=== PATIENT | female | born 1940 | race Hispanic/Latino ===

== ENCOUNTER 2017-09-12 10:32 | Outpatient (CLI) | payer MEDICARE ==
--- NOTE | 2017-09-12 11:35 | RAD ---
RIGHT HAND THREE VIEWS: HISTORY: Pain. COMPARISON: None. 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 There are degenerativ e changes with loss of joint space height, sclerosis, and cyst formation in the first carpometacarpal joint space and second carpometacarpal joint space. There is collapse of the trapezium bone. IMPRESSION: Extensive osteoarthritic changes. POS: [facility]
--- NOTE | 2017-09-12 11:36 | RAD ---
RIGHT WRIST THREE VIEWS: HISTORY: Pain. COMPARISON: None. FINDINGS: There is significant degenerative change with loss of joint space height, sclerotic changes, and drew apse involving the first carpometacarpal joint space. There is irregularity involving the trapezium bone. There is preservation of the radial and ulnar styloid. IMPRESSION: Degenerative change involving the first carpometacarpal joint space. POS: [facility]
--- NOTE | 2017-09-12 11:44 | RAD ---
LEFT WRIST THREE VIEWS: INDICATIONS: Left wrist pain. FINDINGS: There is advanced STT and first CMC osteoarthrosis. There is diffuse osteopenia. Chondrocalcinosis is present within the TFC. No acute fracture or subluxation is noted. The soft tissues are within n ormal limits. There is a healed deformity involving the mid shaft of the left small finger metacarpa l. IMPRESSION: 1. 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 2. 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 POS: [facility]
--- NOTE | 2017-09-12 11:51 | RAD ---
THREE VIEWS OF THE RIGHT ANKLE: COMPARISON: None. HISTORY: Right ankle pain. FINDINGS: Three views right ankle show no evidence of acute fracture or dislocation. No degenerative changes a re seen. No soft tissue swelling is present. IMPRESSION: No evidence of acute osseous abnormality. POS: [facility]
--- NOTE | 2017-09-12 11:53 | RAD ---
THREE VIEWS OF THE RIGHT FOOT: COMPARISON: None. HISTORY: Right foot pain. FINDINGS: Three views right foot show no evidence of acute fracture or dislocation. Mild degenerative changes are seen in the great toe metatarsophalangeal joint. There may be small ossifications along the medi al aspect of the 1st metatarsal head. IMPRESSION: Degenerative changes in the great toe as above. POS: [facility]
--- NOTE | 2017-09-12 11:57 | RAD ---
THREE VIEWS LEFT ANKLE: History: Pain. Comparison: None. FINDINGS: Mild spurring of the calcaneus at the plantar aponeurosis insertion plate. There is lateral soft tissue swelling. Joint space is preserved. NO fracture. Diffuse bone deminerali zation. IMPRESSION: Soft tissue swelling, without evidence of fracture. POS: [facility]
--- NOTE | 2017-09-12 11:58 | RAD ---
THREE VIEWS LEFT FOOT: History: Pain. Comparison: None. FINDINGS: Lisfranc alignment is maintained. Joint space is preserved. No fracture. IMPRESSION: Unremarkable three views left foot. POS: [facility]
--- NOTE | 2017-09-12 12:13 | RAD ---
LEFT HAND THREE VIEWS: INDICATIONS: Left hand pain. FINDINGS: There is advanced first CMC and STT osteoarthrosis. There is chondrocalcinosis of the TFC. There is a healed fracture deformity involving the mid shaft of small finger metacarpal. There is scattered IP osteoarthrosis of the left hand. There is some central erosive change involving the DIP joints of the left index through small fingers, which may reflect an erosive component. The soft tissues are normal appearing. There is diffuse osteopenia. IMPRESSION: 1. Scattered osteoarthrosis with more central erosive change involving the distal interphalangeal niko ints of the left second through fifth digits. This could reflect an erosive osteoarthropathy compone nt. 2. Chondrocalcinosis of the triangular fibrocartilage complex. 3. 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 POS: [facility]
== END 2017-09-12 10:33 | disposition home or self-care (01) ==
LOC: RAD-FRANK 10:32
PROVIDERS: ATTEND Internal Medicine Rheumatology
DX: M25.50 Pain in unspecified joint (principal); M18.0 Bilateral primary osteoarthritis of first carpometacarpal joints; M19.042 Primary osteoarthritis, left hand; M19.041 Primary osteoarthritis, right hand; M79.89 Other specified soft tissue disorders; M19.071 Primary osteoarthritis, right ankle and foot; M19.032 Primary osteoarthritis, left wrist; M11.232 Other chondrocalcinosis, left wrist

== ENCOUNTER 2018-02-03 09:42 | Outpatient (CLI) | payer MEDICARE ==
[2018-02-03] MEDS ORDERED: Gadobenate Dimeglumine 529 MG/1 ML (20ML VIAL) ONE (09:44)
--- NOTE | 2018-02-03 13:59 | MRI ---
MRI BRAIN WITH AND WITHOUT CONTRAST: Date: 02/03/18 HISTORY: Senile degeneration. COMPARISON: None. FINDINGS: No parenchymal hemorrhage. No extra-axial hematoma. No parenchymal mass, mass effect, or midline shif t. Brain volume, age-appropriate. Cortical ramirez-white matter differentiation preserved. No evidence o f hydrocephalus. T2 and FLAIR white matter hyperintensities due to chronic small vessel ischemic change. Central arter ial flow-voids are maintained. Absent restricted diffusion. Calvarium has a normal T1 marrow signal i ntensity. Midline brain parenchymal structures are unremarkable. Bilateral ocular lens implants are n oted. Mild mucosal disease involving bilateral ethmoid air cells. There is significant mucosal diseas e involving the left sphenoid sinus. Small mucus retention cyst in the left maxillary sinus. There is no pathologic enhancement of the brain parenchyma. IMPRESSION: 1. Absent restricted diffusion. No acute infarct. 2. Chronic small vessel ischemic changes of white matter identified. 3. Paranasal sinus disease as above. POS: [facility]
== END 2018-02-03 09:43 | disposition home or self-care (01) ==
LOC: BICMRI 09:42
PROVIDERS: ATTEND Psychiatry & Neurology Neurology
DX: G31.1 Senile degeneration of brain, not elsewhere classified (principal); J32.3 Chronic sphenoidal sinusitis; J34.1 Cyst and mucocele of nose and nasal sinus; J32.2 Chronic ethmoidal sinusitis
CPT/HCPCS: 70553; 82565; A9579

== ENCOUNTER 2019-04-23 12:29 | Emergency (ER) | payer MEDICARE ==
--- NOTE | 2019-04-23 13:32 | RAD ---
XR Chest Pa Lat STANDARD HISTORY: Cough COMPARISON: 07/12/2016 FINDINGS: The heart size is normal. The aorta is tortuous. The lungs are well expanded without focal areas of consolidation, pneumothorax or pleural effusions. IMPRESSION: No radiographic evidence of acute cardiopulmonary process.
== END 2019-04-23 13:58 | disposition home or self-care (01) ==
LOC: ERS 12:29
DX: R05 Cough (principal); R51 Headache; I10 Essential (primary) hypertension
CPT/HCPCS: 71046; 93005

== ENCOUNTER 2022-12-27 15:02 | Inpatient (IN) | payer MEDICARE ==
[~2022-12-27 15:02] MED LIST: Iopamidol-370 76% 500 ML MDV (1 ML CHARGE) ONE
[2022-12-27 16:14] LABS: Hematocrit 38.5 % (36.0-47.0); Hemoglobin 12.7 g/dL (12.0-16.0); Mean Corpuscular Hemoglobin 28.5 pg (27.0-31.0); Mean Corpuscular Volume 86.3 fl (78.0-98.0); Mean Platelet Volume 10.4 fL (7.4-10.4); Platelet Count 158 10x3/uL (130-400); RBC Distribution Width 22.8 % (11.5-14.5); Red Blood Cell (RBC) Count 4.46 mill/uL (4.20-5.40); White Blood Cell (WBC) Count 8.2 10x3/uL (4.8-10.8)
[2022-12-27 16:31] LABS: Delete Auto Diff?? YES; Manual Diff?? YES
[2022-12-27 16:42] LABS: ALT (SGPT) 302 U/L (8-55); AST (SGOT) 405 U/L (5-34); Albumin 2.5 g/dL (3.4-4.8); Alkaline Phosphatase 135 U/L (40-110); Anion Gap 13 mmol/L (10-20); BUN (Urea Nitrogen) 37 mg/dL (9.8-20.1); Bilirubin, Total 0.9 mg/dL (0.2-1.2); CK (CPK) 38 U/L (29-168); Calc. Creatinine Clearance 0 mL/min (70-130); Calcium 7.9 mg/dL (7.8-10.44); Carbon Dioxide 11 mmol/L (23-31); Chloride 112 mmol/L (98-107); Estimated GFR 46; Globulin 2.9 g/dL (2.4-3.5); Glucose 122 mg/dL (83-110); Lipase 35 U/L (8-78); Magnesium 2.1 mg/dL (1.6-2.6); Potassium 3.5 mmol/L (3.5-5.1); Protein, Total 5.4 g/dL (5.8-8.1); Sodium 132 mmol/L (136-145)
[2022-12-27 16:43] LABS: INR-International Normal Ratio 2.1; PTT 36.9 sec (22.9-36.1); Prothrombin Time 24.8 sec (12.0-14.7)
[2022-12-27 16:55] LABS: Anisocytosis MODERATE=16-30 cells HPF (0-5); Band 14 % (5-11); CellaVision Operator ID LAB.KB; Eosinophils 1 % (0-10); Large Platelets 4.2 % (0-5); Lymphocytes 4 % (21-51); Monocytes 3 % (0-10); Neutrophil 76 % (42-75); Platelet Adequacy Comment Platelets Normal; Polychromasia SLIGHT = 2-3 cells HPF (0-2); Reactive Lymphocytes 1 % (0-10); Smudge Cells 39.6 %; Total Cell Count 96
[2022-12-27 17:35] LABS: Bilirubin Negative (Negative); Blood, Urine Negative (Negative); CAUTI Indications for Culture Alt mental st,lethar; Clarity Clear (Clear); Glucose, Urine (Dipstick) Normal (Negative); Ketone, Urine Negative (Negative); Leukocyte Negative Leu/uL (Negative); Nitrite Negative (Negative); Protein, Urine (Dipstick) 30 mg/dL (Neg-Trace); RBC/HPF 0-3 HPF (0-3); Specific Gravity, Urine 1.015 (1.002-1.036); Squamous Epithelial 0-3 HPF (0-3); Urobilinogen Normal mg/dL (Less than 2); pH, Urine 5.5 (5.0-9.0)
[2022-12-27 17:39] LABS: Bacteria/HPF 1+ HPF (None Seen)
[2022-12-27 17:40] LABS: Urine Culture Reflex No No
[2022-12-27 20:44] LABS: Lactic Acid 3.4 mmol/L (0.5-2.2)
[2022-12-27] MEDS ORDERED: Sodium Chloride 0.9% 1,000 ML IV SCH (22:00)
[2022-12-27] MEDS ORDERED: Calcium Carbonate 500 MG ChewTAB PO PRN (22:00)
[2022-12-27] MEDS ORDERED: Acetaminophen 325 MG TAB PO PRN (22:00)
[2022-12-27] MEDS ORDERED: Ondansetron PF 4 MG/2 ML Vial IVP PRN (22:00)
[2022-12-27] MEDS ORDERED: Ondansetron ODT 4 MG TAB PO PRN (22:00)
[2022-12-27] MEDS ORDERED: Loperamide HCl 2 MG CAP PO PRN (22:01)
[2022-12-27 22:02] LABS: Campy jejuni + coli by PCR Negative (Negative); STEC Shiga Toxin 1+2 Negative (Negative); Salmonella spp. by PCR Negative (Negative); Shigella spp + EIEC by PCR Negative (Negative)
[2022-12-27 22:22] VITALS: BMI 18.1
[2022-12-27] MEDS ORDERED: D5 1/2 NS w/20 mEq KCL 1,000 ML IV SCH (22:30)
[2022-12-27] MEDS ORDERED: Piperacillin/Tazobactam 3.375 GM in Sodium Chloride 0.9% 100 ML IVPB SCH ×2 (23:00→23:59)
[2022-12-28] MEDS: Piperacillin/Tazobactam 3.375 GM in Sodium Chloride 0.9% 100 ML IVPB SCH ×3 (04:54→19:56)
[2022-12-28] MEDS ORDERED: Saccharomyces boulardii 250 MG CAP PO SCH (09:00)
[2022-12-28] MEDS: Furosemide 20 MG TAB PO SCH (09:28)
[2022-12-28] MEDS: Apixaban 2.5 MG TAB PO SCH (09:28)
[2022-12-28] MEDS: Famotidine 20 MG TAB PO SCH (09:28)
[2022-12-28] MEDS: Famotidine/PF 20 mg/2ml Vial SLOW IVP SCH (09:30)
[2022-12-28 10:11] LABS: Lactic Acid 1.5 mmol/L (0.5-2.2)
[2022-12-28 10:20] LABS: ALT (SGPT) 307 U/L (8-55); AST (SGOT) 374 U/L (5-34); Albumin 2.2 g/dL (3.4-4.8); Alkaline Phosphatase 115 U/L (40-110); Anion Gap 10 mmol/L (10-20); BUN (Urea Nitrogen) 33 mg/dL (9.8-20.1); Bilirubin, Total 0.8 mg/dL (0.2-1.2); Calc. Creatinine Clearance 32 mL/min (70-130); Calcium 7.6 mg/dL (7.8-10.44); Carbon Dioxide 13 mmol/L (23-31); Chloride 115 mmol/L (98-107); Estimated GFR 60; Globulin 2.9 g/dL (2.4-3.5); Glucose 104 mg/dL (83-110); Potassium 3.1 mmol/L (3.5-5.1); Protein, Total 5.1 g/dL (5.8-8.1); Sodium 135 mmol/L (136-145)
[2022-12-28] MEDS: Atorvastatin Calcium 20 MG TAB PO SCH ×2 (21:21→21:22)
[2022-12-28] MEDS: Saccharomyces boulardii 250 MG CAP PO SCH (21:21)
[2022-12-29] MEDS: Apixaban 2.5 MG TAB PO SCH ×3 (01:19→20:12)
[2022-12-29] MEDS: Piperacillin/Tazobactam 3.375 GM in Sodium Chloride 0.9% 100 ML IVPB SCH ×3 (04:13→20:14)
[2022-12-29 08:38] LABS: #Basophils 0.1 thou/uL (0.0-0.2); #Eosinphils 1.1 thou/uL (0.0-0.7); #Monocytes 0.6 thou/uL (0.11-0.59); %Basophils 0.7 % (0.0-1.0); %Eosinophils 14.1 % (0.0-10.0); %Lymphocytes 22.9 % (21.0-51.0); %Monocytes 8.4 % (0.0-10.0); %Neutrophils 53.8 % (42.0-75.0); Hematocrit 33.3 % (36.0-47.0); Hemoglobin 11.4 g/dL (12.0-16.0); Mean Corpuscular HGB CONC 34.2 g/dL (32.0-36.0); Mean Corpuscular Hemoglobin 28.6 pg (27.0-31.0); Mean Corpuscular Volume 83.7 fl (78.0-98.0); Mean Platelet Volume 10.5 fL (7.4-10.4); Platelet Count 170 10x3/uL (130-400); RBC Distribution Width 22.8 % (11.5-14.5); Red Blood Cell (RBC) Count 3.98 mill/uL (4.20-5.40); White Blood Cell (WBC) Count 7.5 10x3/uL (4.8-10.8)
[2022-12-29 09:00] LABS: ALT (SGPT) 316 U/L (8-55); AST (SGOT) 389 U/L (5-34); Albumin 2.1 g/dL (3.4-4.8); Alkaline Phosphatase 123 U/L (40-110); Anion Gap 10 mmol/L (10-20); BUN (Urea Nitrogen) 26 mg/dL (9.8-20.1); Calc. Creatinine Clearance 36 mL/min (70-130); Calcium 7.6 mg/dL (7.8-10.44); Carbon Dioxide 16 mmol/L (23-31); Chloride 114 mmol/L (98-107); Estimated GFR 70; Globulin 2.8 g/dL (2.4-3.5); Glucose 84 mg/dL (83-110); Potassium 3.1 mmol/L (3.5-5.1); Protein, Total 4.9 g/dL (5.8-8.1); Sodium 137 mmol/L (136-145)
[2022-12-29] MEDS: Potassium Chloride 20 MEQ TAB PO SCH ×2 (09:09→21:45)
[2022-12-29] MEDS: Furosemide 20 MG TAB PO SCH (09:09)
[2022-12-29] MEDS: Famotidine/PF 20 mg/2ml Vial SLOW IVP SCH (09:10)
[2022-12-29] MEDS: Saccharomyces boulardii 250 MG CAP PO SCH ×2 (09:10→20:12)
[2022-12-29] MEDS: Famotidine 20 MG TAB PO SCH (09:10)
[2022-12-29] MEDS ORDERED: Loperamide HCl 2 MG CAP PO PRN (14:28)
[2022-12-29] MEDS ORDERED: Potassium Chloride 20 MEQ in Premix Bag 1 BAG IVPB SCH ×2 (14:29→22:00)
[2022-12-29] MEDS: Loperamide HCl 2 MG CAP PO SCH (20:12)
[2022-12-29] MEDS: Atorvastatin Calcium 20 MG TAB PO SCH (20:13)
[2022-12-30] MEDS: Piperacillin/Tazobactam 3.375 GM in Sodium Chloride 0.9% 100 ML IVPB SCH ×3 (04:15→21:20)
[2022-12-30] MEDS: Potassium Chloride 20 MEQ TAB PO SCH ×2 (04:16→08:43)
[2022-12-30 06:40] LABS: #Eosinphils 0.9 thou/uL (0.0-0.7); #Monocytes 0.6 thou/uL (0.11-0.59); #Neutrophils 3.5 thou/uL (1.40-6.50); %Basophils 0.6 % (0.0-1.0); %Eosinophils 14.1 % (0.0-10.0); %Lymphocytes 23.2 % (21.0-51.0); %Monocytes 9.3 % (0.0-10.0); %Neutrophils 52.5 % (42.0-75.0); Hematocrit 33.7 % (36.0-47.0); Hemoglobin 11.6 g/dL (12.0-16.0); Mean Corpuscular HGB CONC 34.4 g/dL (32.0-36.0); Mean Corpuscular Hemoglobin 28.3 pg (27.0-31.0); Mean Corpuscular Volume 82.2 fl (78.0-98.0); Mean Platelet Volume 10.7 fL (7.4-10.4); Platelet Count 168 10x3/uL (130-400); RBC Distribution Width 22.7 % (11.5-14.5); White Blood Cell (WBC) Count 6.7 10x3/uL (4.8-10.8)
[2022-12-30 07:02] LABS: Anion Gap 9 mmol/L (10-20); BUN (Urea Nitrogen) 18 mg/dL (9.8-20.1); Calc. Creatinine Clearance 40 mL/min (70-130); Calcium 7.6 mg/dL (7.8-10.44); Carbon Dioxide 17 mmol/L (23-31); Chloride 113 mmol/L (98-107); Estimated GFR 80; Glucose 70 mg/dL (83-110); Magnesium 2.3 mg/dL (1.6-2.6); Potassium 3.7 mmol/L (3.5-5.1); Sodium 135 mmol/L (136-145)
[2022-12-30] MEDS: Loperamide HCl 2 MG CAP PO SCH ×2 (08:43→21:21)
[2022-12-30] MEDS: Saccharomyces boulardii 250 MG CAP PO SCH ×2 (08:44→21:21)
[2022-12-30] MEDS: Famotidine 20 MG TAB PO SCH (08:44)
[2022-12-30] MEDS: Apixaban 2.5 MG TAB PO SCH ×2 (08:45→21:21)
[2022-12-30] MEDS: Famotidine/PF 20 mg/2ml Vial SLOW IVP SCH (08:45)
[2022-12-30] MEDS: Atorvastatin Calcium 20 MG TAB PO SCH (21:21)
[2022-12-31] MEDS: Piperacillin/Tazobactam 3.375 GM in Sodium Chloride 0.9% 100 ML IVPB SCH ×2 (04:15→11:38)
[2022-12-31 08:24] LABS: ALT (SGPT) 417 U/L (8-55); AST (SGOT) 582 U/L (5-34); Albumin 2.2 g/dL (3.4-4.8); Alkaline Phosphatase 152 U/L (40-110); Anion Gap 10 mmol/L (10-20); BUN (Urea Nitrogen) 14 mg/dL (9.8-20.1); Bilirubin, Direct 0.9 mg/dL (0.1-0.3); Bilirubin, Total 1.4 mg/dL (0.2-1.2); Calc. Creatinine Clearance 44 mL/min (70-130); Calcium 7.6 mg/dL (7.8-10.44); Carbon Dioxide 17 mmol/L (23-31); Chloride 112 mmol/L (98-107); Estimated GFR 86; Glucose 71 mg/dL (83-110); Potassium 3.4 mmol/L (3.5-5.1); Protein, Total 5.1 g/dL (5.8-8.1); Sodium 136 mmol/L (136-145)
[2022-12-31 08:45] LABS: HBCM Index 0.08 S/CO (0-0.79); HBSAg Index 0.24 S/CO (0-0.99); Hep A IgM AB Non-Reactive S/CO (NonReactive); Hep A IgM S/CO 0.27 S/CO (0-0.79); Hep B Surf Ag Non-Reactive S/CO (NonReactive); Hep C IgG Ab Non-Reactive S/CO (NonReactive); Hep C Index 0.21 S/CO (0-0.79); Hepatitis B Core IgM Abs Non-Reactive S/CO (NonReactive)
[2022-12-31] MEDS: Loperamide HCl 2 MG CAP PO SCH ×2 (09:51→21:06)
[2022-12-31] MEDS: Apixaban 2.5 MG TAB PO SCH (09:51)
[2022-12-31] MEDS: Potassium Chloride 20 MEQ TAB PO SCH (09:51)
[2022-12-31] MEDS: Furosemide 20 MG TAB PO SCH (09:51)
[2022-12-31] MEDS: Famotidine 20 MG TAB PO SCH (09:52)
[2022-12-31] MEDS: Saccharomyces boulardii 250 MG CAP PO SCH ×2 (09:52→21:06)
[2022-12-31] MEDS: Famotidine/PF 20 mg/2ml Vial SLOW IVP SCH (09:52)
[2022-12-31] MEDS: Atorvastatin Calcium 20 MG TAB PO SCH (21:06)
[2023-01-01] MEDS: Famotidine 20 MG TAB PO SCH (11:15)
[2023-01-01] MEDS: Potassium Chloride 20 MEQ TAB PO SCH (11:15)
[2023-01-01] MEDS: Saccharomyces boulardii 250 MG CAP PO SCH ×2 (11:15→21:50)
[2023-01-01] MEDS: Furosemide 20 MG TAB PO SCH (11:16)
[2023-01-01] MEDS: Loperamide HCl 2 MG CAP PO SCH ×3 (11:16→17:36)
[2023-01-01] MEDS: Famotidine/PF 20 mg/2ml Vial SLOW IVP SCH (11:30)
[2023-01-01] MEDS: Atorvastatin Calcium 20 MG TAB PO SCH (21:50)
[2023-01-02 01:14] VITALS: TEMP 98.6
[2023-01-02 08:06] VITALS: BP 100/66
[2023-01-02] MEDS: Potassium Chloride 20 MEQ TAB PO SCH (08:26)
[2023-01-02] MEDS: Furosemide 20 MG TAB PO SCH (08:26)
[2023-01-02] MEDS: Saccharomyces boulardii 250 MG CAP PO SCH (08:26)
[2023-01-02] MEDS: Famotidine 20 MG TAB PO SCH (08:27)
[2023-01-02] MEDS: Loperamide HCl 2 MG CAP PO SCH (08:30)
[2023-01-02] MEDS ORDERED: Apixaban 2.5 MG TAB PO SCH (09:00)
[2023-01-02] MEDS: Famotidine/PF 20 mg/2ml Vial SLOW IVP SCH (09:48)
== END 2023-01-02 12:26 | disposition home or self-care (01) | DRG 394 ==
LOC: ERS 15:02 → T4-B 20:36 → OBSVTOIN 12-28 17:40
PROVIDERS: ADMIT Student in an Organized Health Care Education/Training Program; ATTEND Internal Medicine
PROC: 0DBP8ZX Excision of Rectum, Via Natural or Artificial Opening Endoscopic, Diagnostic (ICD-10-PCS; principal; 2023-01-01)
PROC: 0DBN8ZX Excision of Sigmoid Colon, Via Natural or Artificial Opening Endoscopic, Diagnostic (ICD-10-PCS; 2023-01-01)
DX: K52.1 Toxic gastroenteritis and colitis (principal); E44.0 Moderate protein-calorie malnutrition; N17.9 Acute kidney failure, unspecified; E87.20 Acidosis, unspecified; I13.0 Hypertensive heart and chronic kidney disease with heart failure and stage 1 through stage 4 chronic kidney disease, or unspecified chronic kidney disease; I50.22 Chronic systolic (congestive) heart failure; Z68.1 Body mass index [BMI] 19.9 or less, adult; R64 Cachexia; K52.9 Noninfective gastroenteritis and colitis, unspecified; I95.9 Hypotension, unspecified; I48.91 Unspecified atrial fibrillation; F03.90 Unspecified dementia, unspecified severity, without behavioral disturbance, psychotic disturbance, mood disturbance, and anxiety; I25.10 Atherosclerotic heart disease of native coronary artery without angina pectoris; R74.01 Elevation of levels of liver transaminase levels; K82.4 Cholesterolosis of gallbladder; N18.9 Chronic kidney disease, unspecified; E87.6 Hypokalemia; I44.7 Left bundle-branch block, unspecified; E86.0 Dehydration; Z88.7 Allergy status to serum and vaccine; Z91.011 Allergy to milk products; Z79.899 Other long term (current) drug therapy; Z98.890 Other specified postprocedural states; T50.995A Adverse effect of other drugs, medicaments and biological substances, initial encounter; Z79.01 Long term (current) use of anticoagulants; Z82.49 Family history of ischemic heart disease and other diseases of the circulatory system
CPT/HCPCS: 36415; 71045; 74177; 80048; 80053; 81001; 82550; 83605; 83690; 83735; 84484; 85025; 85610; 85730; 87040; 87324; 87449; 87505; 93005; J2405; J2543; J3480; J3490

== ENCOUNTER 2023-01-10 16:07 | Inpatient (IN) | payer MEDICARE, OTHER ==
[2023-01-10] MEDS ORDERED: Ondansetron PF 4 MG/2 ML Vial ONE (16:27)
[2023-01-10 16:36] LABS: #Neutrophils 6.8 thou/uL (1.40-6.50); %Basophils 0.1 % (0.0-1.0); %Lymphocytes 15.5 % (21.0-51.0); %Monocytes 11.1 % (0.0-10.0); %Neutrophils 72.8 % (42.0-75.0); Hematocrit 31.2 % (36.0-47.0); Hemoglobin 11.1 g/dL (12.0-16.0); Mean Corpuscular HGB CONC 35.6 g/dL (32.0-36.0); Mean Corpuscular Hemoglobin 28.8 pg (27.0-31.0); Mean Corpuscular Volume 80.8 fl (78.0-98.0); Platelet Count 110 10x3/uL (130-400); RBC Distribution Width 22.8 % (11.5-14.5); Red Blood Cell (RBC) Count 3.86 mill/uL (4.20-5.40); White Blood Cell (WBC) Count 9.3 10x3/uL (4.8-10.8)
[2023-01-10 17:08] LABS: ALT (SGPT) 571 U/L (8-55); AST (SGOT) 706 U/L (5-34); Albumin 1.9 g/dL (3.4-4.8); Alkaline Phosphatase 479 U/L (40-110); Anion Gap 14 mmol/L (10-20); BUN (Urea Nitrogen) 26 mg/dL (9.8-20.1); Bilirubin, Total 3.8 mg/dL (0.2-1.2); Calc. Creatinine Clearance 0 mL/min (70-130); Carbon Dioxide 20 mmol/L (23-31); Chloride 100 mmol/L (98-107); Estimated GFR 62; Globulin 3.1 g/dL (2.4-3.5); Glucose 109 mg/dL (83-110); Magnesium 2.5 mg/dL (1.6-2.6); Potassium 4.5 mmol/L (3.5-5.1); Sodium 129 mmol/L (136-145)
[2023-01-10 17:10] LABS: Bacteria/HPF 3+ HPF (None Seen); Bilirubin Negative (Negative); Blood, Urine Trace (Negative); CAUTI Indications for Culture Alt mental st,lethar; Clarity Turbid (Clear); Glucose, Urine (Dipstick) Normal (Negative); Ketone, Urine Negative (Negative); Leukocyte Negative Leu/uL (Negative); Nitrite Negative (Negative); Protein, Urine (Dipstick) 10 mg/dL (Neg-Trace); RBC/HPF 0-3 HPF (0-3); Specific Gravity, Urine 1.011 (1.002-1.036); Squamous Epithelial 0-3 HPF (0-3); Urobilinogen Normal mg/dL (Less than 2)
[2023-01-10 17:19] LABS: Yeast-Budding 2+ HPF (None Seen)
[2023-01-10 17:20] LABS: Urine Culture Reflex Yes Yes
[2023-01-10] MEDS ORDERED: NOREPINEPHRINE 8 MG/250 ML-D5W 0 ML ONE (18:02)
[2023-01-10] MEDS ORDERED: Cefepime 2 GM VIAL ONE (18:19)
[2023-01-10] MEDS ORDERED: CALCIUM GLUC 1 GM/NS 50 ML 1 GM in Premix Bag 1 BAG IVPB SCH (19:15)
[2023-01-10] MEDS ORDERED: Ondansetron PF 4 MG/2 ML Vial IVP PRN (19:55)
[2023-01-10] MEDS ORDERED: Acetaminophen 325 MG TAB PO PRN (19:55)
[2023-01-10] MEDS ORDERED: Ondansetron ODT 4 MG TAB PO PRN (19:55)
[2023-01-10] MEDS ORDERED: Sodium Chloride 0.9% 1,000 ML IV SCH (20:00)
[2023-01-10] MEDS ORDERED: Vancomycin 1 GM/200 ML (FROZEN) BAG ONE (20:42)
[2023-01-10 21:09] LABS: Lactic Acid 2.2 mmol/L (0.5-2.2)
[2023-01-10] MEDS: cefTRIAXone\\ROCEPHIN 1 GM in Sodium Chloride 0.9% 100 ML IVPB SCH (23:33)
[2023-01-10] MEDS: Apixaban 2.5 MG TAB PO SCH (23:36)
[2023-01-11 00:36] VITALS: BMI 22.9
[2023-01-11 03:36] LABS: Troponin I 0.082 ng/mL (< 0.028)
[2023-01-11 04:32] LABS: #Monocytes 0.4 thou/uL (0.11-0.59); #Neutrophils 5.7 thou/uL (1.40-6.50); %Basophils 0.1 % (0.0-1.0); %Lymphocytes 14.9 % (21.0-51.0); %Monocytes 5.7 % (0.0-10.0); %Neutrophils 78.7 % (42.0-75.0); Hematocrit 30.2 % (36.0-47.0); Hemoglobin 10.8 g/dL (12.0-16.0); Mean Corpuscular HGB CONC 35.8 g/dL (32.0-36.0); Mean Corpuscular Hemoglobin 28.3 pg (27.0-31.0); Mean Corpuscular Volume 79.1 fl (78.0-98.0); RBC Distribution Width 22.5 % (11.5-14.5); Red Blood Cell (RBC) Count 3.82 mill/uL (4.20-5.40); White Blood Cell (WBC) Count 7.2 10x3/uL (4.8-10.8)
[2023-01-11 04:41] LABS: Platelet Count 110 10x3/uL (130-400)
[2023-01-11 05:00] LABS: Anion Gap 11 mmol/L (10-20); BUN (Urea Nitrogen) 25 mg/dL (9.8-20.1); Calc. Creatinine Clearance 40 mL/min (70-130); Calcium 7.3 mg/dL (7.8-10.44); Carbon Dioxide 22 mmol/L (23-31); Chloride 101 mmol/L (98-107); Estimated GFR 65; Glucose 105 mg/dL (83-110); Potassium 4.1 mmol/L (3.5-5.1); Sodium 130 mmol/L (136-145)
[2023-01-11 05:57] LABS: Troponin I 0.082 ng/mL (< 0.028)
[2023-01-11] MEDS: Potassium Chloride 10 MEQ TAB PO SCH (08:58)
[2023-01-11] MEDS: Furosemide 40 MG TAB PO SCH (08:58)
[2023-01-11] MEDS: Saccharomyces boulardii 250 MG CAP PO SCH (08:58)
[2023-01-11] MEDS: Apixaban 2.5 MG TAB PO SCH ×2 (08:58→22:26)
[2023-01-11] MEDS: Fluconazole 100 MG TAB PO SCH (08:58)
[2023-01-11] MEDS: Carvedilol 3.125 MG TAB PO SCH (17:19)
[2023-01-11] MEDS: cefTRIAXone\\ROCEPHIN 1 GM in Sodium Chloride 0.9% 100 ML IVPB SCH (20:20)
[2023-01-12 05:43] LABS: ALT (SGPT) 379 U/L (8-55); AST (SGOT) 384 U/L (5-34); Albumin 1.9 g/dL (3.4-4.8); Alkaline Phosphatase 452 U/L (40-110); Anion Gap 15 mmol/L (10-20); BUN (Urea Nitrogen) 27 mg/dL (9.8-20.1); Bilirubin, Direct 1.7 mg/dL (0.1-0.3); Bilirubin, Total 3.1 mg/dL (0.2-1.2); Calc. Creatinine Clearance 39 mL/min (70-130); Calcium 7.1 mg/dL (7.8-10.44); Carbon Dioxide 16 mmol/L (23-31); Chloride 102 mmol/L (98-107); Estimated GFR 63; Glucose 74 mg/dL (83-110); Potassium 5.2 mmol/L (3.5-5.1); Protein, Total 5.2 g/dL (5.8-8.1); Sodium 128 mmol/L (136-145)
[2023-01-12 07:02] LABS: #Monocytes 0.9 thou/uL (0.11-0.59); #Neutrophils 8.3 thou/uL (1.40-6.50); %Basophils 0.1 % (0.0-1.0); %Eosinophils 0.1 % (0.0-10.0); %Lymphocytes 13.7 % (21.0-51.0); %Monocytes 8.5 % (0.0-10.0); %Neutrophils 77.2 % (42.0-75.0); Hematocrit 37.3 % (36.0-47.0); Hemoglobin 13.3 g/dL (12.0-16.0); Mean Corpuscular HGB CONC 35.7 g/dL (32.0-36.0); Mean Corpuscular Hemoglobin 28.5 pg (27.0-31.0); Mean Corpuscular Volume 79.9 fl (78.0-98.0); Platelet Count 117 10x3/uL (130-400); RBC Distribution Width 23.5 % (11.5-14.5); Red Blood Cell (RBC) Count 4.67 mill/uL (4.20-5.40); White Blood Cell (WBC) Count 10.8 10x3/uL (4.8-10.8)
[2023-01-12] MEDS ORDERED: Lactated Ringer's 1,000 ML IV SCH (09:15)
[2023-01-12] MEDS: Saccharomyces boulardii 250 MG CAP PO SCH (09:46)
[2023-01-12] MEDS: Furosemide 40 MG TAB PO SCH (09:46)
[2023-01-12] MEDS: Fluconazole 100 MG TAB PO SCH (09:46)
[2023-01-12] MEDS: Potassium Chloride 10 MEQ TAB PO SCH (09:46)
[2023-01-12] MEDS: Carvedilol 3.125 MG TAB PO SCH (09:47)
[2023-01-12] MEDS: Apixaban 2.5 MG TAB PO SCH (09:47)
[2023-01-12 12:49] VITALS: TEMP 96.1
[2023-01-12 13:09] LABS: Chloride 101 mmol/L (98-107); Potassium 4.5 mmol/L (3.5-5.1); Sodium 128 mmol/L (136-145)
[2023-01-12 13:10] LABS: Calcium 7.5 mg/dL (7.8-10.44); Glucose 62 mg/dL (83-110)
[2023-01-12 13:12] LABS: Anion Gap 16 mmol/L (10-20); Carbon Dioxide 16 mmol/L (23-31)
[2023-01-12 13:14] LABS: Calc. Creatinine Clearance 39 mL/min (70-130); Estimated GFR 62
[2023-01-12 13:15] LABS: BUN (Urea Nitrogen) 28 mg/dL (9.8-20.1)
[2023-01-12] MEDS ORDERED: Piperacillin/Tazobactam 3.375 GM in Sodium Chloride 0.9% 100 ML IVPB SCH ×2 (14:15→18:00)
[2023-01-12] MEDS ORDERED: Calcium Chloride 1 GM/10 ML Abboject SYRINGE ONE (16:00)
[2023-01-12] MEDS ORDERED: Dextrose 50% Abboject 50 ML SYRINGE ONE (16:00)
[2023-01-12] MEDS ORDERED: EPINEPHrine 1 MG/10 ML Abboject SYRINGE ONE ×2 (16:00→16:31)
[2023-01-12] MEDS ORDERED: Amiodarone 150 MG/3 ML VIAL ONE (16:00)
[2023-01-12] MEDS ORDERED: Sodium Bicarb 50 MEQ/50 ML Abboject 8.4% SYRINGE ONE (16:00)
[2023-01-12 16:35] VITALS: BP 60/48
[2023-01-12] MEDS ORDERED: NOREPINEPHRINE 8 MG/250 ML-D5W 250 ML ONE (16:36)
[2023-01-12 16:37] LABS: Base Excess (BEa) -18.8 mEq/L (-2.0 to +3.0); CO2 Tension 43.3 mmHg (35.0-45.0); Carboxyhemoglobin (COHb) 0.3 gm% (0.0-3.0); Hematocrit-ABG 28 % (36.0-47.0); Hemoglobin (Hb) 9.6 g/dL (12.0-16.0); O2 Tension (PaO2), arterial 67.7 mmHg (> 60.0); Potassium - ABG Lab 4.04 mmol/L (3.70-5.30)
[2023-01-12] MEDS ORDERED: Vasopressin 20 UNITS, Admixture Fee 1 EACH in Sodium Chloride 0.9% 50 ML IV SCH (16:45)
[2023-01-12 16:53] LABS: pH, Arterial 7.026 (7.35-7.45)
[2023-01-12 16:54] LABS: ALV-art Gradient 591.175 mmHg (0-20); Actual Bicarbonate (HCO3a) 11.1 mEq/L (22-28); Puncture Site LBA
[2023-01-12 17:14] LABS: BUN (Urea Nitrogen) 12 mg/dL (9.8-20.1); Calc. Creatinine Clearance 88 mL/min (70-130); Calcium 2.9 mg/dL (7.8-10.44); Carbon Dioxide Less than 8 mmol/L (23-31); Chloride 128 mmol/L (98-107); Estimated GFR 98; Glucose 130 mg/dL (83-110); Lactic Acid 4.1 mmol/L (0.5-2.2); Potassium 2.1 mmol/L (3.5-5.1); Sodium 139 mmol/L (136-145)
[2023-01-12] MEDS ORDERED: EPINEPHrine 4 MG in Dextrose 5% in Water 250 ML IV SCH (17:15)
[2023-01-12] MEDS ORDERED: NOREPINEPHRINE 8 MG/250 ML-D5W 250 ML IVPB SCH (17:15)
[2023-01-12 17:27] LABS: #Monocytes 0.5 thou/uL (0.11-0.59); #Neutrophils 6.9 thou/uL (1.40-6.50); %Eosinophils 0.1 % (0.0-10.0); %Lymphocytes 25.2 % (21.0-51.0); %Monocytes 4.9 % (0.0-10.0); %Neutrophils 68.3 % (42.0-75.0); Mean Corpuscular HGB CONC 34.6 g/dL (32.0-36.0); Mean Corpuscular Hemoglobin 28.5 pg (27.0-31.0); RBC Distribution Width 23.3 % (11.5-14.5); White Blood Cell (WBC) Count 10.1 10x3/uL (4.8-10.8)
[2023-01-12 17:34] LABS: Hemoglobin 9.7 g/dL (12.0-16.0); Mean Corpuscular Volume 82.4 fl (78.0-98.0)
[2023-01-12 17:35] LABS: Platelet Count 92 10x3/uL (130-400)
[2023-01-12 17:55] LABS: ALT (SGPT) 583 U/L (8-55); AST (SGOT) 1091 U/L (5-34); Albumin Less than 1.0 g/dL (3.4-4.8); Alkaline Phosphatase 260 U/L (40-110); Anion Gap 17 mmol/L (10-20); BUN (Urea Nitrogen) 27 mg/dL (9.8-20.1); Bilirubin, Total 1.6 mg/dL (0.2-1.2); Calc. Creatinine Clearance 39 mL/min (70-130); Calcium 6.8 mg/dL (7.8-10.44); Carbon Dioxide 17 mmol/L (23-31); Chloride 102 mmol/L (98-107); Estimated GFR 63; Globulin 1.5 g/dL (2.4-3.5); Glucose 294 mg/dL (83-110); Magnesium 2.6 mg/dL (1.6-2.6); Phosphorus 6.7 mg/dL (2.3-4.7); Potassium 4.7 mmol/L (3.5-5.1); Protein, Total 2.5 g/dL (5.8-8.1); Sodium 131 mmol/L (136-145)
[2023-01-12 18:00] LABS: Troponin I 0.057 ng/mL (< 0.028)
[2023-01-12] MEDS ORDERED: Sodium Bicarb 50 MEQ/50 ML Abboject 8.4% SYRINGE IVP SCH (18:00)
== END 2023-01-12 17:11 | disposition expired | DRG 871 ==
LOC: ERS 16:07 → 2NO 19:22 → CCU 01-12 16:31
PROVIDERS: ADMIT Student in an Organized Health Care Education/Training Program; ATTEND Hospitalist
PROC: 3E033XZ Introduction of Vasopressor into Peripheral Vein, Percutaneous Approach (ICD-10-PCS; 2023-01-10)
PROC: 30233J1 Transfusion of Nonautologous Serum Albumin into Peripheral Vein, Percutaneous Approach (ICD-10-PCS; 2023-01-10)
PROC: 3E03329 Introduction of Other Anti-infective into Peripheral Vein, Percutaneous Approach (ICD-10-PCS; 2023-01-10)
PROC: 5A12012 Performance of Cardiac Output, Single, Manual (ICD-10-PCS; principal; 2023-01-12)
PROC: 4A133R1 Monitoring of Arterial Saturation, Peripheral, Percutaneous Approach (ICD-10-PCS; 2023-01-12)
PROC: 0BH17EZ Insertion of Endotracheal Airway into Trachea, Via Natural or Artificial Opening (ICD-10-PCS; 2023-01-12)
PROC: 5A1935Z Respiratory Ventilation, Less than 24 Consecutive Hours (ICD-10-PCS; 2023-01-12)
DX: A41.9 Sepsis, unspecified organism (principal); E43 Unspecified severe protein-calorie malnutrition; I50.22 Chronic systolic (congestive) heart failure; I13.0 Hypertensive heart and chronic kidney disease with heart failure and stage 1 through stage 4 chronic kidney disease, or unspecified chronic kidney disease; N39.0 Urinary tract infection, site not specified; I5A Non-ischemic myocardial injury (non-traumatic); E87.1 Hypo-osmolality and hyponatremia; R64 Cachexia; R53.1 Weakness; R65.20 Severe sepsis without septic shock; Z66 Do not resuscitate; I46.8 Cardiac arrest due to other underlying condition; I48.91 Unspecified atrial fibrillation; I25.10 Atherosclerotic heart disease of native coronary artery without angina pectoris; L89.159 Pressure ulcer of sacral region, unspecified stage; F03.90 Unspecified dementia, unspecified severity, without behavioral disturbance, psychotic disturbance, mood disturbance, and anxiety; E88.09 Other disorders of plasma-protein metabolism, not elsewhere classified; R74.01 Elevation of levels of liver transaminase levels; N18.2 Chronic kidney disease, stage 2 (mild); K52.839 Microscopic colitis, unspecified; Z68.22 Body mass index [BMI] 22.0-22.9, adult; Z91.018 Allergy to other foods; Z91.011 Allergy to milk products; Z88.7 Allergy status to serum and vaccine; Z79.899 Other long term (current) drug therapy
CPT/HCPCS: 36415; 36416; 36600; 51701; 70450; 71045; 74018; 74181; 76705; 80048; 80053; 80076; 81001; 82805; 83605; 83735; 83880; 84100; 84484; 85025; 87040; 87086; 93005; 93010; 94002; 96361; 96365; 96367; 96368; 96375; J0171; J0282; J0613; J0692; J0696; J2405; J3370-JW; J3490; J7050; J7120; J7999; P9045